=== PATIENT | male | born 1935 | race Caucasian/White ===

== ENCOUNTER 2022-02-08 08:22 | Inpatient (IN) ==
[2022-02-08] MEDS ORDERED: SODIUM CHLORIDE 0.9% 1,000 ML IV STA (09:13)
[2022-02-08 09:48] LABS: Albumin 3.7 G/DL (3.4-5.0); Bilirubin,Total 1.1 MG/DL (0.20-1.00); Calcium 8.8 MG/DL (8.5-10.1); Osmolality,Calculated 333.3 MOS/KG (273-304); Total Protein 7.2 G/DL (6.4-8.2)
[2022-02-08 09:53] LABS: Potassium 6.7 MMOL/L (3.5-5.1)
[2022-02-08 10:05] LABS: Basophils # 0.1 10*3/uL (0.0-0.2); Basophils % 0.3 % (0.0-0.8); Hematocrit 38.2 VOL% (42.0-52.0); Immature Granulocytes % 1.5 %; Immature Granulocytes Absolute 0.35 #; Lymphocytes # 1.5 10*3/uL (1.4-4.0); Lymphocytes % 6.4 % (21.2-54.2); Mean Corpuscular HGB Conc 28.5 GM/DL (32-36); Mean Corpuscular Volume 108.2 FL (87-102); Mean Platelet Volume 13.8 FL (9.6-12.0); Monocytes # 2.4 10*3/uL (0.11-0.8); Monocytes % 10.1 % (1.7-12.7); Neutrophils % 81.7 % (38.7-73.9); Platelet Count 205 T/CUMM (130-400); Red Blood Count 3.53 MC/CUMM (3.8-5.5); Red Cell Distribution Width 14.4 % (9.3-17.3); White Blood Count 23.4 T/CUMM (4-12)
[2022-02-08 10:07] LABS: Hemoglobin 10.9 GM/DL (14.0-18.0)
[2022-02-08 10:17] LABS: Band Neutrophils 6 % (0-10); Lymphocytes 5 % (20-55); Nucleated Red Blood Cells 2 (0-5); Total Cells Counted 100
[2022-02-08 10:18] LABS: Macrocytosis Slight; Ovalocytes Few; Platelet Estimate Normal; Polychromasia Slight
[2022-02-08 10:32] LABS: Arterial Base Excess iSTAT -19 MMOL/L (-2.5-2.5); Arterial Bicarbonate iSTAT 8.8 MMOL/L (20-26); Arterial O2 Saturation iSTAT 92 % (95-100); Arterial PCO2 iSTAT 26 MM HG (35-48); Arterial PO2 iSTAT 81 MM HG (80-95); Arterial Total CO2 iSTAT 10 MMO/L (23-27); Arterial pH iSTAT 7.132 (7.35-7.45)
[2022-02-08] MEDS ORDERED: LACTATED RINGERS 1,500 ML IV ONE (10:45)
[2022-02-08 11:27] LABS: Albumin 3.6 G/DL (3.4-5.0); Calcium 8.5 MG/DL (8.5-10.1); Total Protein 6.8 G/DL (6.4-8.2)
[2022-02-08 11:30] LABS: Potassium 6.8 MMOL/L (3.5-5.1)
[2022-02-08] MEDS ORDERED: ALBUTEROL 2.5 MG/3 ML NEB RESP TX STA (11:32)
[2022-02-08] MEDS ORDERED: INSULIN REGULAR 100 UNIT/ML IV ONE (11:32)
[2022-02-08] MEDS ORDERED: SODIUM BICARBONATE 50 MEQ/50 ML VIAL IV STA (11:38)
[2022-02-08] MEDS ORDERED: INSULIN REGULAR DRIP 100 ML IV PRN (11:50)
[2022-02-08] MEDS: LACTATED RINGERS 1,000 ML IV SCH ×2 (13:39→21:23)
[2022-02-08 14:44] LABS: Calcium 8.3 MG/DL (8.5-10.1); Osmolality,Calculated 332.5 MOS/KG (273-304); Potassium 5.4 MMOL/L (3.5-5.1)
[2022-02-08 14:44] LABS: Glucose,Urine (UA) >1000 mg/dL (Negative); Hyaline Casts,Urine 3 /LPF (0-3); Mucus,Urine Occasional /LPF (Occasional); Protein,Urine 100 mg/dL (Negative); RBC,Urine 2 /HPF (0-4); Squamous Epithelial Cell,Urine Occasional /HPF (0-10); Urine Appearance Clear (Clear); Urine Color Yellow (Yellow)
[2022-02-08 14:45] LABS: Bilirubin,Urine Small mg/dL (Negative); Blood, Urine Large mg/dL (Negative); Ketones,Urine 15 mg/dL (Negative); Nitrite,Urine Negative (Negative); Urine Urobilinogen 0.2 eU/dL (<2.0)
[2022-02-08] MEDS: PANTOPRAZOLE 40 MG VIAL IV SCH (14:47)
[2022-02-08] MEDS: cloNIDine 0.3 MG/24 HR PATCH TRANSDERM SCH (14:48)
[2022-02-08] MEDS: cefTRIAXone 1,000 MG in SODIUM CHLORIDE 0.9% 100 ML IV SCH (14:48)
[2022-02-08] MEDS ORDERED: LACTATED RINGERS 1,000 ML IV ONE (14:59)
[2022-02-08 16:49] LABS: Calcium 8.2 MG/DL (8.5-10.1); Osmolality,Calculated 331.1 MOS/KG (273-304); Potassium 5.2 MMOL/L (3.5-5.1)
[2022-02-08 19:54] LABS: Calcium 8.3 MG/DL (8.5-10.1); Osmolality,Calculated 326.1 MOS/KG (273-304); Potassium 5.4 MMOL/L (3.5-5.1)
[2022-02-08] MEDS ORDERED: ENOXAPARIN 30 MG/0.3 ML SYRINGE SUBCUT SCH (21:00)
[2022-02-08 22:20] LABS: Calcium 8.7 MG/DL (8.5-10.1); Osmolality,Calculated 320.8 MOS/KG (273-304); Potassium 5.3 MMOL/L (3.5-5.1)
[2022-02-08] MEDS ORDERED: METOPROLOL TARTRATE 5 MG/5 ML VIAL IV ONE (23:45)
[2022-02-09 01:56] LABS: ABG Base Excess -4.7 MMOL/L (-2.5-2.5); ABG HCO3 20.4 MMOL/L (20-26); ABG Oxygen Saturation 95.5 % (95-100); ABG PCO2 43.1 MM HG (35-48); ABG PH 7.305 (7.35-7.45); ABG PO2 84.3 MM HG (80-95); ABG TCO2 19.6 MMOL/L (23-27)
[2022-02-09 04:02] LABS: Basophils % 0.1 % (0.0-0.8); Hemoglobin 10.1 GM/DL (14.0-18.0); Immature Granulocytes % 0.9 %; Immature Granulocytes Absolute 0.13 #; Lymphocytes # 0.7 10*3/uL (1.4-4.0); Lymphocytes % 4.6 % (21.2-54.2); Mean Corpuscular HGB Conc 33.7 GM/DL (32-36); Mean Corpuscular Volume 92.9 FL (87-102); Mean Platelet Volume 12.2 FL (9.6-12.0); Monocytes # 1.3 10*3/uL (0.11-0.8); Monocytes % 8.6 % (1.7-12.7); Neutrophils % 85.8 % (38.7-73.9); Platelet Count 141 T/CUMM (130-400); Red Blood Count 3.23 MC/CUMM (3.8-5.5); Red Cell Distribution Width 13.6 % (9.3-17.3); White Blood Count 14.7 T/CUMM (4-12)
[2022-02-09 04:20] LABS: PT Patient Result 68.6 SECS (10.1-12.1)
[2022-02-09 04:21] LABS: Band Neutrophils 2 % (0-10); Eosinophils 1 % (0-10); Lymphocytes 3 % (20-55); Platelet Estimate Adequate; Total Cells Counted 100
[2022-02-09 04:23] LABS: Calcium 8.6 MG/DL (8.5-10.1); Osmolality,Calculated 318.1 MOS/KG (273-304); Potassium 4.7 MMOL/L (3.5-5.1)
[2022-02-09 04:24] LABS: INR 7.2
[2022-02-09] MEDS: LACTATED RINGERS 1,000 ML IV SCH ×2 (04:31→12:44)
[2022-02-09] MEDS ORDERED: METOPROLOL TARTRATE 5 MG/5 ML VIAL IV ONE (05:37)
[2022-02-09] MEDS ORDERED: INSULIN REGULAR 100 UNIT/ML IV ONE ×2 (08:59→13:45)
[2022-02-09] MEDS: PANTOPRAZOLE 40 MG VIAL IV SCH (09:03)
[2022-02-09] MEDS: METOPROLOL TARTRATE 5 MG/5 ML VIAL IV SCH ×5 (09:28→23:34)
[2022-02-09] MEDS: INSULIN REGULAR 100 UNIT/ML IV PRN ×2 (12:01→14:49)
[2022-02-09 13:40] LABS: Calcium 8.7 MG/DL (8.5-10.1); Osmolality,Calculated 312.2 MOS/KG (273-304); Potassium 4.1 MMOL/L (3.5-5.1)
[2022-02-09 14:32] LABS: Arterial Base Excess iSTAT -2 MMOL/L (-2.5-2.5); Arterial O2 Saturation iSTAT 99 % (95-100); Arterial PCO2 iSTAT 46 MM HG (35-48); Arterial PO2 iSTAT 141 MM HG (80-95); Arterial Total CO2 iSTAT 25 MMO/L (23-27); Arterial pH iSTAT 7.326 (7.35-7.45)
[2022-02-09] MEDS: cefTRIAXone 1,000 MG in SODIUM CHLORIDE 0.9% 100 ML IV SCH (16:30)
[2022-02-09 18:08] LABS: PT Patient Result 70.7 SECS (10.1-12.1)
[2022-02-09 18:15] LABS: Albumin 3.1 G/DL (3.4-5.0); Bilirubin,Total 0.7 MG/DL (0.20-1.00); Calcium 8.7 MG/DL (8.5-10.1); Osmolality,Calculated 304.1 MOS/KG (273-304); Phosphorous 3.4 MG/DL (2.5-4.9); Potassium 3.9 MMOL/L (3.5-5.1); Thyroid Stimulating Hormone 0.322 uIU/ml (0.358-3.74); Total Protein 5.6 G/DL (6.4-8.2)
[2022-02-09 18:16] LABS: INR 7.4
[2022-02-09] MEDS ORDERED: PHYTONADIONE 10 MG/1 ML AMP SUBCUT ONE (19:48)
[2022-02-10 04:41] LABS: Basophils % 0.1 % (0.0-0.8); Eosinophils # 0.1 10*3/uL (0.0-0.87); Eosinophils % 0.5 % (0.00-10.9); Hematocrit 30.2 VOL% (42.0-52.0); Hemoglobin 10.1 GM/DL (14.0-18.0); Immature Granulocytes % 0.6 %; Immature Granulocytes Absolute 0.07 #; Lymphocytes # 1.3 10*3/uL (1.4-4.0); Lymphocytes % 10.4 % (21.2-54.2); Mean Corpuscular HGB Conc 33.4 GM/DL (32-36); Mean Corpuscular Volume 92.1 FL (87-102); Mean Platelet Volume 13.4 FL (9.6-12.0); Monocytes # 0.9 10*3/uL (0.11-0.8); Monocytes % 7.4 % (1.7-12.7); Red Blood Count 3.28 MC/CUMM (3.8-5.5); Red Cell Distribution Width 13.9 % (9.3-17.3); White Blood Count 12.5 T/CUMM (4-12)
[2022-02-10 04:44] LABS: Platelet Count 107 T/CUMM (130-400)
[2022-02-10 04:58] LABS: PT Patient Result 67.6 SECS (10.1-12.1)
[2022-02-10] MEDS: METOPROLOL TARTRATE 5 MG/5 ML VIAL IV SCH ×3 (05:28→19:00)
[2022-02-10 06:58] LABS: Potassium 3.6 MMOL/L (3.5-5.1)
[2022-02-10 07:01] LABS: Calcium 8.7 MG/DL (8.5-10.1)
[2022-02-10 07:02] LABS: Osmolality,Calculated 298.3 MOS/KG (273-304)
[2022-02-10 07:05] LABS: Phosphorous 2.2 MG/DL (2.5-4.9)
[2022-02-10 07:06] LABS: Total Protein 5.4 G/DL (6.4-8.2)
[2022-02-10 07:07] LABS: Bilirubin,Total 0.9 MG/DL (0.20-1.00)
[2022-02-10] MEDS: INSULIN REGULAR 100 UNIT/ML SUBCUT SCH ×4 (09:00→20:52)
[2022-02-10] MEDS: PANTOPRAZOLE 40 MG VIAL IV SCH (09:00)
[2022-02-10] MEDS ORDERED: ZINC OXIDE PASTE 113 GM TUBE TOP PRN (15:49)
[2022-02-10] MEDS: cefTRIAXone 1,000 MG in SODIUM CHLORIDE 0.9% 100 ML IV SCH (17:18)
[2022-02-11] MEDS: INSULIN REGULAR 100 UNIT/ML SUBCUT SCH ×6 (00:11→20:30)
[2022-02-11] MEDS: METOPROLOL TARTRATE 5 MG/5 ML VIAL IV SCH ×4 (00:12→17:27)
[2022-02-11 04:56] LABS: Basophils % 0.2 % (0.0-0.8); Eosinophils # 0.1 10*3/uL (0.0-0.87); Eosinophils % 1.3 % (0.00-10.9); Hematocrit 31.3 VOL% (42.0-52.0); Hemoglobin 10.2 GM/DL (14.0-18.0); Immature Granulocytes % 0.8 %; Immature Granulocytes Absolute 0.07 #; Lymphocytes % 11.4 % (21.2-54.2); Mean Corpuscular HGB Conc 32.6 GM/DL (32-36); Mean Corpuscular Volume 94.8 FL (87-102); Mean Platelet Volume 12.6 FL (9.6-12.0); Monocytes # 0.8 10*3/uL (0.11-0.8); Monocytes % 8.8 % (1.7-12.7); Neutrophils % 77.5 % (38.7-73.9); Platelet Count 124 T/CUMM (130-400); Red Cell Distribution Width 14.2 % (9.3-17.3)
[2022-02-11 05:12] LABS: Calcium 8.9 MG/DL (8.5-10.1); Potassium 4.4 MMOL/L (3.5-5.1)
[2022-02-11] MEDS: PANTOPRAZOLE 40 MG VIAL IV SCH (09:23)
[2022-02-11] MEDS: cefTRIAXone 1,000 MG in SODIUM CHLORIDE 0.9% 100 ML IV SCH (14:58)
[2022-02-12] MEDS: METOPROLOL TARTRATE 5 MG/5 ML VIAL IV SCH ×2 (00:20→05:15)
[2022-02-12] MEDS: INSULIN REGULAR 100 UNIT/ML SUBCUT SCH ×7 (00:20→23:36)
[2022-02-12 06:16] LABS: Basophils % 0.2 % (0.0-0.8); Eosinophils # 0.2 10*3/uL (0.0-0.87); Eosinophils % 1.8 % (0.00-10.9); Hematocrit 32.1 VOL% (42.0-52.0); Hemoglobin 10.4 GM/DL (14.0-18.0); Immature Granulocytes % 0.7 %; Immature Granulocytes Absolute 0.08 #; Lymphocytes # 0.8 10*3/uL (1.4-4.0); Mean Corpuscular HGB Conc 32.4 GM/DL (32-36); Mean Corpuscular Volume 96.7 FL (87-102); Mean Platelet Volume 12.4 FL (9.6-12.0); Monocytes # 0.8 10*3/uL (0.11-0.8); Monocytes % 7.1 % (1.7-12.7); Neutrophils % 83.2 % (38.7-73.9); Platelet Count 114 T/CUMM (130-400); Red Blood Count 3.32 MC/CUMM (3.8-5.5); Red Cell Distribution Width 14.2 % (9.3-17.3); White Blood Count 11.5 T/CUMM (4-12)
[2022-02-12 06:18] LABS: INR 1.6; PT Patient Result 17.5 SECS (10.1-12.1)
[2022-02-12 06:32] LABS: Calcium 8.8 MG/DL (8.5-10.1); Osmolality,Calculated 289.3 MOS/KG (273-304); Potassium 3.4 MMOL/L (3.5-5.1)
[2022-02-12] MEDS ORDERED: METOPROLOL TARTRATE 5 MG/5 ML VIAL IV ONE (08:49)
[2022-02-12] MEDS: METOPROLOL TARTRATE 25 MG TABLET PO SCH ×2 (09:04→20:39)
[2022-02-12] MEDS: PANTOPRAZOLE 40 MG VIAL IV SCH (09:06)
[2022-02-12] MEDS ORDERED: POTASSIUM CHLORIDE 20 MEQ TABLET PO ONE (13:19)
[2022-02-12] MEDS: ALUMINUM/MAGNES/SIMETH MAX STR 30 ML UDCUP PO PRN (14:52)
[2022-02-12] MEDS: cefTRIAXone 1,000 MG in SODIUM CHLORIDE 0.9% 100 ML IV SCH (14:56)
[2022-02-12] MEDS: POTASSIUM CHLORIDE 10 MEQ TABLET PO SCH (14:56)
[2022-02-12] MEDS: WARFARIN 5 MG TABLET PO SCH (17:35)
[2022-02-13] MEDS: INSULIN REGULAR 100 UNIT/ML SUBCUT SCH ×6 (04:08→23:03)
[2022-02-13 05:47] LABS: Basophils # 0.1 10*3/uL (0.0-0.2); Basophils % 0.4 % (0.0-0.8); Eosinophils # 0.6 10*3/uL (0.0-0.87); Eosinophils % 3.9 % (0.00-10.9); Hematocrit 34.6 VOL% (42.0-52.0); Immature Granulocytes % 1.8 %; Immature Granulocytes Absolute 0.26 #; Lymphocytes % 6.7 % (21.2-54.2); Mean Corpuscular HGB Conc 31.8 GM/DL (32-36); Mean Corpuscular Volume 96.4 FL (87-102); Mean Platelet Volume 11.9 FL (9.6-12.0); Monocytes # 1.2 10*3/uL (0.11-0.8); Monocytes % 8.3 % (1.7-12.7); Neutrophils % 78.9 % (38.7-73.9); Platelet Count 122 T/CUMM (130-400); Red Blood Count 3.59 MC/CUMM (3.8-5.5); Red Cell Distribution Width 14.1 % (9.3-17.3); White Blood Count 14.3 T/CUMM (4-12)
[2022-02-13 05:49] LABS: INR 1.3; PT Patient Result 13.8 SECS (10.1-12.1)
[2022-02-13 05:58] LABS: Albumin 2.6 G/DL (3.4-5.0); Bilirubin,Total 1.4 MG/DL (0.20-1.00); Calcium 8.5 MG/DL (8.5-10.1); Osmolality,Calculated 281.8 MOS/KG (273-304); Potassium 3.4 MMOL/L (3.5-5.1); Total Protein 5.6 G/DL (6.4-8.2)
[2022-02-13] MEDS: METOPROLOL TARTRATE 25 MG TABLET PO SCH ×2 (08:18→20:59)
[2022-02-13] MEDS: POTASSIUM CHLORIDE 10 MEQ TABLET PO SCH (08:18)
[2022-02-13] MEDS: PANTOPRAZOLE 40 MG TABLET PO SCH (08:18)
[2022-02-13] MEDS: cefTRIAXone 1,000 MG in SODIUM CHLORIDE 0.9% 100 ML IV SCH (14:18)
[2022-02-13] MEDS: ALUMINUM/MAGNES/SIMETH MAX STR 30 ML UDCUP PO PRN ×2 (14:23→18:08)
[2022-02-13] MEDS: WARFARIN 5 MG TABLET PO SCH (17:54)
[2022-02-13] MEDS ORDERED: WARFARIN 2.5 MG TABLET PO ONE (18:00)
[2022-02-13] MEDS: DOCUSATE SODIUM 100 MG CAPSULE PO SCH (20:59)
[2022-02-13] MEDS: INSULIN GLARGINE 100 UNIT/ML SUBCUT SCH (20:59)
[2022-02-14] MEDS: INSULIN REGULAR 100 UNIT/ML SUBCUT SCH ×6 (04:18→23:45)
[2022-02-14 06:00] LABS: Basophils # 0.1 10*3/uL (0.0-0.2); Basophils % 0.7 % (0.0-0.8); Eosinophils # 0.8 10*3/uL (0.0-0.87); Eosinophils % 5.2 % (0.00-10.9); Hematocrit 33.8 VOL% (42.0-52.0); Hemoglobin 10.9 GM/DL (14.0-18.0); Immature Granulocytes % 4.5 %; Immature Granulocytes Absolute 0.66 #; Lymphocytes # 1.1 10*3/uL (1.4-4.0); Lymphocytes % 7.2 % (21.2-54.2); Mean Corpuscular HGB Conc 32.2 GM/DL (32-36); Mean Corpuscular Volume 94.7 FL (87-102); Mean Platelet Volume 12.2 FL (9.6-12.0); Monocytes # 1.6 10*3/uL (0.11-0.8); Monocytes % 10.7 % (1.7-12.7); Neutrophils % 71.7 % (38.7-73.9); Platelet Count 148 T/CUMM (130-400); Red Blood Count 3.57 MC/CUMM (3.8-5.5); White Blood Count 14.8 T/CUMM (4-12)
[2022-02-14 06:22] LABS: INR 1.3; PT Patient Result 14.2 SECS (10.1-12.1)
[2022-02-14 06:24] LABS: Albumin 2.3 G/DL (3.4-5.0); Bilirubin,Total 1.2 MG/DL (0.20-1.00); Calcium 8.1 MG/DL (8.5-10.1); Osmolality,Calculated 278.7 MOS/KG (273-304); Potassium 3.2 MMOL/L (3.5-5.1); Total Protein 5.6 G/DL (6.4-8.2)
[2022-02-14] MEDS: PANTOPRAZOLE 40 MG TABLET PO SCH (08:00)
[2022-02-14] MEDS: POTASSIUM CHLORIDE 10 MEQ TABLET PO SCH (08:01)
[2022-02-14] MEDS: METOPROLOL TARTRATE 25 MG TABLET PO SCH (08:01)
[2022-02-14] MEDS: POTASSIUM CHLORIDE 20 MEQ TABLET PO SCH (08:02)
[2022-02-14] MEDS ORDERED: METOPROLOL TARTRATE 25 MG TABLET PO ONE (09:24)
[2022-02-14 09:27] LABS: Eosinophils 3 % (0-10); Lymphocytes 2 % (20-55); Myelocytes 1 %; Platelet Estimate Adequate; Total Cells Counted 100
[2022-02-14] MEDS ORDERED: GLUCAGON 1 MG VIAL IM PRN (12:31)
[2022-02-14] MEDS: ONDANSETRON 4 MG/2 ML VIAL IV PRN (12:32)
[2022-02-14] MEDS ORDERED: DEXTROSE 50% 25 GM/50 ML SYRINGE IV PRN (12:32)
[2022-02-14] MEDS: cefTRIAXone 1,000 MG in SODIUM CHLORIDE 0.9% 100 ML IV SCH (15:38)
[2022-02-14] MEDS: guaiFENesin 200 MG/10 ML UDCUP PO PRN (17:42)
[2022-02-14] MEDS: WARFARIN 5 MG TABLET PO SCH (17:42)
[2022-02-14] MEDS: DOCUSATE SODIUM 100 MG CAPSULE PO SCH (20:53)
[2022-02-14] MEDS: METOPROLOL TARTRATE 50 MG TABLET PO SCH (20:53)
[2022-02-14] MEDS: INSULIN GLARGINE 100 UNIT/ML SUBCUT SCH (20:53)
[2022-02-14] MEDS: MELATONIN 3 MG TABLET PO PRN (20:54)
[2022-02-15] MEDS: INSULIN REGULAR 100 UNIT/ML SUBCUT SCH ×6 (04:00→23:27)
[2022-02-15 05:52] LABS: Basophils # 0.1 10*3/uL (0.0-0.2); Basophils % 0.9 % (0.0-0.8); Eosinophils # 0.5 10*3/uL (0.0-0.87); Eosinophils % 5.2 % (0.00-10.9); Hematocrit 33.8 VOL% (42.0-52.0); Hemoglobin 10.8 GM/DL (14.0-18.0); Immature Granulocytes % 7.2 %; Immature Granulocytes Absolute 0.75 #; Lymphocytes # 0.9 10*3/uL (1.4-4.0); Lymphocytes % 8.4 % (21.2-54.2); Mean Corpuscular Volume 95.8 FL (87-102); Monocytes # 1.5 10*3/uL (0.11-0.8); Monocytes % 13.9 % (1.7-12.7); Neutrophils % 64.4 % (38.7-73.9); Platelet Count 159 T/CUMM (130-400); Red Blood Count 3.53 MC/CUMM (3.8-5.5); Red Cell Distribution Width 14.1 % (9.3-17.3); White Blood Count 10.4 T/CUMM (4-12)
[2022-02-15 06:08] LABS: Calcium 7.8 MG/DL (8.5-10.1); Potassium 3.7 MMOL/L (3.5-5.1)
[2022-02-15 06:11] LABS: INR 1.4; PT Patient Result 14.8 SECS (10.1-12.1)
[2022-02-15 07:17] LABS: Eosinophils 3 % (0-10); Lymphocytes 5 % (20-55); Ovalocytes Few; Platelet Estimate Adequate; Schistocytes Slight; Total Cells Counted 100
[2022-02-15] MEDS: POTASSIUM CHLORIDE 20 MEQ TABLET PO SCH (08:38)
[2022-02-15] MEDS: PANTOPRAZOLE 40 MG TABLET PO SCH (08:39)
[2022-02-15] MEDS: METOPROLOL TARTRATE 50 MG TABLET PO SCH ×2 (08:39→20:23)
[2022-02-15] MEDS: guaiFENesin 200 MG/10 ML UDCUP PO PRN ×2 (09:19→20:26)
[2022-02-15] MEDS: cloNIDine 0.3 MG/24 HR PATCH TRANSDERM SCH (11:45)
[2022-02-15] MEDS: ALBUTEROL/IPRATROPIUM 3 ML NEB RESP TX SCH ×4 (12:05→23:45)
[2022-02-15] MEDS: cefTRIAXone 1,000 MG in SODIUM CHLORIDE 0.9% 100 ML IV SCH (16:00)
[2022-02-15] MEDS: ACETAMINOPHEN 325 MG TABLET PO PRN ×2 (16:02→21:39)
[2022-02-15] MEDS: WARFARIN 5 MG TABLET PO SCH (17:34)
[2022-02-15] MEDS: DOCUSATE SODIUM 100 MG CAPSULE PO SCH (19:59)
[2022-02-15] MEDS: INSULIN GLARGINE 100 UNIT/ML SUBCUT SCH (20:23)
[2022-02-15] MEDS: MELATONIN 3 MG TABLET PO PRN (20:23)
[2022-02-15] MEDS: ONDANSETRON 4 MG/2 ML VIAL IV PRN (20:26)
[2022-02-15] MEDS: ALUMINUM/MAGNES/SIMETH MAX STR 30 ML UDCUP PO PRN (23:16)
[2022-02-16] MEDS: ALBUTEROL/IPRATROPIUM 3 ML NEB RESP TX SCH ×6 (03:22→23:08)
[2022-02-16] MEDS: INSULIN REGULAR 100 UNIT/ML SUBCUT SCH ×6 (04:14→23:45)
[2022-02-16 05:24] LABS: Basophils # 0.1 10*3/uL (0.0-0.2); Basophils % 0.6 % (0.0-0.8); Eosinophils # 0.2 10*3/uL (0.0-0.87); Eosinophils % 2.3 % (0.00-10.9); Hematocrit 33.3 VOL% (42.0-52.0); Hemoglobin 10.7 GM/DL (14.0-18.0); Immature Granulocytes Absolute 0.35 #; Lymphocytes # 0.8 10*3/uL (1.4-4.0); Lymphocytes % 8.7 % (21.2-54.2); Mean Corpuscular HGB Conc 32.1 GM/DL (32-36); Mean Corpuscular Volume 96.2 FL (87-102); Mean Platelet Volume 11.6 FL (9.6-12.0); Monocytes # 1.3 10*3/uL (0.11-0.8); Monocytes % 15.3 % (1.7-12.7); Neutrophils % 69.1 % (38.7-73.9); Platelet Count 168 T/CUMM (130-400); Red Blood Count 3.46 MC/CUMM (3.8-5.5); Red Cell Distribution Width 14.3 % (9.3-17.3); White Blood Count 8.7 T/CUMM (4-12)
[2022-02-16 05:35] LABS: Calcium 8.3 MG/DL (8.5-10.1); Potassium 3.6 MMOL/L (3.5-5.1)
[2022-02-16] MEDS: ALUMINUM/MAGNES/SIMETH MAX STR 30 ML UDCUP PO PRN (05:46)
[2022-02-16] MEDS: PANTOPRAZOLE 40 MG TABLET PO SCH (08:26)
[2022-02-16] MEDS: POTASSIUM CHLORIDE 20 MEQ TABLET PO SCH (08:26)
[2022-02-16] MEDS: METOPROLOL TARTRATE 50 MG TABLET PO SCH (08:26)
[2022-02-16 08:45] LABS: Albumin 2.4 G/DL (3.4-5.0); Bilirubin,Total 0.8 MG/DL (0.20-1.00); Calcium 8.3 MG/DL (8.5-10.1); Osmolality,Calculated 276.2 MOS/KG (273-304); Total Protein 5.7 G/DL (6.4-8.2)
[2022-02-16] MEDS: DILTIAZEM 30 MG TABLET PO SCH ×2 (09:07→12:41)
[2022-02-16] MEDS: WARFARIN 5 MG TABLET PO SCH (17:21)
[2022-02-16] MEDS: VANCOMYCIN 50 MG/ML 60 ML/BOTTLE PO SCH ×2 (18:26→23:46)
[2022-02-16] MEDS ORDERED: METOPROLOL TARTRATE 5 MG/5 ML VIAL IV ONE (20:36)
[2022-02-16] MEDS: METOPROLOL TARTRATE 5 MG/5 ML VIAL IV SCH (20:39)
[2022-02-16] MEDS: INSULIN GLARGINE 100 UNIT/ML SUBCUT SCH (20:55)
[2022-02-16] MEDS: ONDANSETRON 4 MG/2 ML VIAL IV PRN (23:43)
[2022-02-17] MEDS: ALBUTEROL/IPRATROPIUM 3 ML NEB RESP TX SCH ×6 (03:13→22:35)
[2022-02-17] MEDS: METOPROLOL TARTRATE 5 MG/5 ML VIAL IV SCH ×4 (03:38→16:29)
[2022-02-17] MEDS: INSULIN REGULAR 100 UNIT/ML SUBCUT SCH ×6 (03:49→23:43)
[2022-02-17 05:44] LABS: Basophils # 0.1 10*3/uL (0.0-0.2); Basophils % 0.6 % (0.0-0.8); Eosinophils # 0.2 10*3/uL (0.0-0.87); Eosinophils % 1.6 % (0.00-10.9); Hematocrit 34.1 VOL% (42.0-52.0); Immature Granulocytes % 2.1 %; Immature Granulocytes Absolute 0.24 #; Lymphocytes # 0.9 10*3/uL (1.4-4.0); Mean Corpuscular HGB Conc 32.3 GM/DL (32-36); Mean Corpuscular Volume 94.7 FL (87-102); Mean Platelet Volume 11.4 FL (9.6-12.0); Monocytes # 1.6 10*3/uL (0.11-0.8); Monocytes % 13.8 % (1.7-12.7); Neutrophils % 73.9 % (38.7-73.9); Platelet Count 192 T/CUMM (130-400); Red Cell Distribution Width 14.4 % (9.3-17.3); White Blood Count 11.5 T/CUMM (4-12)
[2022-02-17] MEDS: VANCOMYCIN 50 MG/ML 60 ML/BOTTLE PO SCH ×4 (06:03→23:43)
[2022-02-17 06:11] LABS: Albumin 2.3 G/DL (3.4-5.0); Bilirubin,Total 0.7 MG/DL (0.20-1.00); Calcium 8.4 MG/DL (8.5-10.1); Potassium 3.5 MMOL/L (3.5-5.1); Total Protein 5.6 G/DL (6.4-8.2)
[2022-02-17] MEDS: DILTIAZEM INJ 100 MG in SODIUM CHLORIDE 0.9% 100 ML IV PRN ×2 (07:40→20:20)
[2022-02-17] MEDS: POTASSIUM CHLORIDE RIDER 10 MEQ/100 ML PREMIX IV PRN ×3 (08:10→10:12)
[2022-02-17] MEDS: POTASSIUM CHLORIDE 20 MEQ TABLET PO SCH (08:15)
[2022-02-17] MEDS: PANTOPRAZOLE 40 MG TABLET PO SCH (08:15)
[2022-02-17] MEDS: LACTATED RINGERS 1,000 ML IV SCH ×2 (08:40→21:53)
[2022-02-17] MEDS: FLUCONAZOLE 100 MG TABLET PO SCH (09:32)
[2022-02-17] MEDS: PANTOPRAZOLE 40 MG VIAL IV SCH (09:32)
[2022-02-17] MEDS: WARFARIN 5 MG TABLET PO SCH (18:40)
[2022-02-17] MEDS ORDERED: METOPROLOL TARTRATE 5 MG/5 ML VIAL IV PRN (18:49)
[2022-02-17] MEDS ORDERED: METOPROLOL TARTRATE 5 MG/5 ML VIAL IV SCH (20:30)
[2022-02-17] MEDS: DILTIAZEM 30 MG TABLET PO SCH (21:13)
[2022-02-17] MEDS: INSULIN GLARGINE 100 UNIT/ML SUBCUT SCH (21:14)
[2022-02-17] MEDS: METOPROLOL TARTRATE 50 MG TABLET PO SCH (21:16)
[2022-02-17] MEDS: MELATONIN 3 MG TABLET PO PRN (22:43)
[2022-02-18] MEDS: ALBUTEROL/IPRATROPIUM 3 ML NEB RESP TX SCH ×5 (03:55→19:59)
[2022-02-18 04:37] LABS: Basophils # 0.1 10*3/uL (0.0-0.2); Basophils % 0.5 % (0.0-0.8); Eosinophils # 0.2 10*3/uL (0.0-0.87); Eosinophils % 1.5 % (0.00-10.9); Hematocrit 32.7 VOL% (42.0-52.0); Hemoglobin 10.4 GM/DL (14.0-18.0); Immature Granulocytes % 1.5 %; Immature Granulocytes Absolute 0.23 #; Lymphocytes # 0.9 10*3/uL (1.4-4.0); Lymphocytes % 5.7 % (21.2-54.2); Mean Corpuscular HGB Conc 31.8 GM/DL (32-36); Mean Corpuscular Volume 95.9 FL (87-102); Mean Platelet Volume 12.3 FL (9.6-12.0); Monocytes # 1.6 10*3/uL (0.11-0.8); Monocytes % 10.4 % (1.7-12.7); Neutrophils % 80.4 % (38.7-73.9); Platelet Count 210 T/CUMM (130-400); Red Blood Count 3.41 MC/CUMM (3.8-5.5); Red Cell Distribution Width 14.5 % (9.3-17.3); White Blood Count 15.7 T/CUMM (4-12)
[2022-02-18 04:50] LABS: INR 2.2; PT Patient Result 22.8 SECS (10.1-12.1)
[2022-02-18 05:04] LABS: Albumin 2.1 G/DL (3.4-5.0); Bilirubin,Total 0.8 MG/DL (0.20-1.00); Calcium 8.2 MG/DL (8.5-10.1); Potassium 3.6 MMOL/L (3.5-5.1); Total Protein 5.4 G/DL (6.4-8.2)
[2022-02-18] MEDS: INSULIN REGULAR 100 UNIT/ML SUBCUT SCH ×5 (05:10→20:04)
[2022-02-18] MEDS: DILTIAZEM INJ 100 MG in SODIUM CHLORIDE 0.9% 100 ML IV PRN (06:55)
[2022-02-18] MEDS: VANCOMYCIN 50 MG/ML 60 ML/BOTTLE PO SCH ×4 (06:55→23:42)
[2022-02-18] MEDS: POTASSIUM CHLORIDE 20 MEQ TABLET PO PRN (07:13)
[2022-02-18] MEDS ORDERED: MAGNESIUM SULF RIDER 2 GM/50 ML PREMIX IV ONE (07:19)
[2022-02-18] MEDS: METOPROLOL TARTRATE 50 MG TABLET PO SCH ×2 (08:46→20:04)
[2022-02-18] MEDS: FLUCONAZOLE 100 MG TABLET PO SCH (08:46)
[2022-02-18] MEDS: DILTIAZEM 30 MG TABLET PO SCH ×4 (08:46→20:04)
[2022-02-18] MEDS: PANTOPRAZOLE 40 MG VIAL IV SCH (08:46)
[2022-02-18] MEDS: POTASSIUM CHLORIDE 20 MEQ TABLET PO SCH (08:46)
[2022-02-18] MEDS: LACTATED RINGERS 1,000 ML IV SCH (13:46)
[2022-02-18] MEDS ORDERED: SODIUM CHLORIDE 0.9% 1,000 ML IV PRN ×2 (14:36→21:21)
[2022-02-18] MEDS: MELATONIN 3 MG TABLET PO PRN (20:04)
[2022-02-18] MEDS: INSULIN GLARGINE 100 UNIT/ML SUBCUT SCH (20:04)
[2022-02-18 21:14] LABS: INR 2.1; PT Patient Result 21.7 SECS (10.1-12.1)
[2022-02-19] MEDS: INSULIN REGULAR 100 UNIT/ML SUBCUT SCH ×6 (00:10→20:40)
[2022-02-19] MEDS: ALBUTEROL/IPRATROPIUM 3 ML NEB RESP TX SCH ×7 (03:30→22:00)
[2022-02-19] MEDS: LACTATED RINGERS 1,000 ML IV SCH (04:05)
[2022-02-19 04:27] LABS: Basophils # 0.1 10*3/uL (0.0-0.2); Basophils % 0.5 % (0.0-0.8); Eosinophils # 0.3 10*3/uL (0.0-0.87); Eosinophils % 2.4 % (0.00-10.9); Hematocrit 28.6 VOL% (42.0-52.0); Hemoglobin 9.3 GM/DL (14.0-18.0); Immature Granulocytes % 1.3 %; Immature Granulocytes Absolute 0.14 #; Lymphocytes # 0.8 10*3/uL (1.4-4.0); Lymphocytes % 7.4 % (21.2-54.2); Mean Corpuscular HGB Conc 32.5 GM/DL (32-36); Mean Corpuscular Volume 94.4 FL (87-102); Monocytes # 0.9 10*3/uL (0.11-0.8); Monocytes % 8.1 % (1.7-12.7); Neutrophils % 80.3 % (38.7-73.9); Platelet Count 212 T/CUMM (130-400); Red Blood Count 3.03 MC/CUMM (3.8-5.5); Red Cell Distribution Width 14.5 % (9.3-17.3); White Blood Count 10.8 T/CUMM (4-12)
[2022-02-19 04:37] LABS: INR 1.8; PT Patient Result 18.9 SECS (10.1-12.1)
[2022-02-19 04:43] LABS: Albumin 2.4 G/DL (3.4-5.0); Bilirubin,Total 1.1 MG/DL (0.20-1.00); Calcium 8.1 MG/DL (8.5-10.1); Osmolality,Calculated 279.5 MOS/KG (273-304); Potassium 2.9 MMOL/L (3.5-5.1); Total Protein 5.8 G/DL (6.4-8.2)
[2022-02-19 04:45] LABS: Eosinophils 2 % (0-10); Lymphocytes 8 % (20-55); Platelet Estimate Adequate; Total Cells Counted 100
[2022-02-19] MEDS: POTASSIUM CHLORIDE RIDER 10 MEQ/100 ML PREMIX IV PRN ×4 (05:10→11:15)
[2022-02-19] MEDS: VANCOMYCIN 50 MG/ML 60 ML/BOTTLE PO SCH ×3 (06:54→18:40)
[2022-02-19] MEDS ORDERED: LACTATED RINGERS 1,000 ML IV SCH (08:00)
[2022-02-19] MEDS: DILTIAZEM 60 MG TABLET PO SCH ×3 (09:19→20:41)
[2022-02-19] MEDS: METOPROLOL TARTRATE 50 MG TABLET PO SCH ×2 (09:22→20:42)
[2022-02-19] MEDS: PANTOPRAZOLE 40 MG VIAL IV SCH (09:48)
[2022-02-19] MEDS ORDERED: LIDOCAINE 2% 5 ML VIAL ONE (10:19)
[2022-02-19] MEDS ORDERED: propofoL 200 MG/20 ML VIAL IV ONE (10:19)
[2022-02-19] MEDS ORDERED: ETOMIDATE 20 MG/10 ML VIAL IV ONE (10:19)
[2022-02-19] MEDS ORDERED: PHENYLEPHRINE 1 MG/10 ML SYRINGE IV ONE (10:20)
[2022-02-19] MEDS: BACILLUS COAGULANS CAPLET PO SCH ×2 (16:26→20:41)
[2022-02-19] MEDS: FLUCONAZOLE 100 MG TABLET PO SCH (16:27)
[2022-02-19] MEDS: POTASSIUM CHLORIDE 20 MEQ TABLET PO SCH (16:29)
[2022-02-19] MEDS: DEXT 5% NACL 0.45% KCL 40 MEQ 40 MEQ/1,000 ML BAG IV SCH ×2 (17:30→19:00)
[2022-02-19] MEDS: INSULIN GLARGINE 100 UNIT/ML SUBCUT SCH (20:40)
[2022-02-19] MEDS: MELATONIN 3 MG TABLET PO PRN (20:41)
[2022-02-20] MEDS: INSULIN REGULAR 100 UNIT/ML SUBCUT SCH ×6 (00:31→20:43)
[2022-02-20] MEDS: VANCOMYCIN 50 MG/ML 60 ML/BOTTLE PO SCH ×4 (00:32→18:09)
[2022-02-20] MEDS: DEXT 5% NACL 0.45% KCL 40 MEQ 40 MEQ/1,000 ML BAG IV SCH ×3 (02:40→15:32)
[2022-02-20] MEDS: ALBUTEROL/IPRATROPIUM 3 ML NEB RESP TX SCH ×5 (03:34→19:13)
[2022-02-20 04:17] LABS: Basophils # 0.1 10*3/uL (0.0-0.2); Basophils % 0.9 % (0.0-0.8); Eosinophils # 0.3 10*3/uL (0.0-0.87); Eosinophils % 3.2 % (0.00-10.9); Hematocrit 31.1 VOL% (42.0-52.0); Hemoglobin 9.9 GM/DL (14.0-18.0); Immature Granulocytes % 1.5 %; Immature Granulocytes Absolute 0.14 #; Lymphocytes # 0.9 10*3/uL (1.4-4.0); Lymphocytes % 9.7 % (21.2-54.2); Mean Corpuscular HGB Conc 31.8 GM/DL (32-36); Mean Platelet Volume 11.1 FL (9.6-12.0); Monocytes # 0.9 10*3/uL (0.11-0.8); Monocytes % 9.9 % (1.7-12.7); Neutrophils % 74.8 % (38.7-73.9); Platelet Count 199 T/CUMM (130-400); Red Blood Count 3.24 MC/CUMM (3.8-5.5); Red Cell Distribution Width 14.4 % (9.3-17.3); White Blood Count 9.3 T/CUMM (4-12)
[2022-02-20 04:42] LABS: Albumin 2.1 G/DL (3.4-5.0); Bilirubin,Total 0.9 MG/DL (0.20-1.00); Calcium 7.9 MG/DL (8.5-10.1); Osmolality,Calculated 278.5 MOS/KG (273-304); Potassium 3.3 MMOL/L (3.5-5.1); Total Protein 5.4 G/DL (6.4-8.2)
[2022-02-20] MEDS: POTASSIUM CHLORIDE RIDER 10 MEQ/100 ML PREMIX IV PRN (06:00)
[2022-02-20] MEDS: POTASSIUM CHLORIDE 20 MEQ TABLET PO SCH (08:33)
[2022-02-20] MEDS: BACILLUS COAGULANS CAPLET PO SCH ×2 (08:33→20:41)
[2022-02-20] MEDS: PANTOPRAZOLE 40 MG VIAL IV SCH (08:33)
[2022-02-20] MEDS: DILTIAZEM CD 180 MG CAPSULE PO SCH ×2 (08:33→20:40)
[2022-02-20] MEDS: POTASSIUM CHLORIDE 20 MEQ TABLET PO PRN ×3 (08:34→15:32)
[2022-02-20] MEDS: METOPROLOL TARTRATE 50 MG TABLET PO SCH ×2 (08:34→20:41)
[2022-02-20] MEDS: FLUCONAZOLE 100 MG TABLET PO SCH (08:34)
[2022-02-20] MEDS ORDERED: MAGNESIUM SULF RIDER 2 GM/50 ML PREMIX IV PRN (13:08)
[2022-02-20] MEDS: WARFARIN 5 MG TABLET PO SCH (18:08)
[2022-02-20] MEDS: INSULIN GLARGINE 100 UNIT/ML SUBCUT SCH (20:43)
[2022-02-20] MEDS: MELATONIN 3 MG TABLET PO PRN (20:54)
[2022-02-21] MEDS: INSULIN REGULAR 100 UNIT/ML SUBCUT SCH ×6 (00:45→21:10)
[2022-02-21] MEDS: VANCOMYCIN 50 MG/ML 60 ML/BOTTLE PO SCH ×4 (01:08→18:37)
[2022-02-21] MEDS: DEXT 5% NACL 0.45% KCL 40 MEQ 40 MEQ/1,000 ML BAG IV SCH ×3 (03:07→22:19)
[2022-02-21 03:33] LABS: Basophils # 0.1 10*3/uL (0.0-0.2); Basophils % 0.9 % (0.0-0.8); Eosinophils # 0.4 10*3/uL (0.0-0.87); Eosinophils % 3.4 % (0.00-10.9); Hematocrit 30.1 VOL% (42.0-52.0); Hemoglobin 9.7 GM/DL (14.0-18.0); Immature Granulocytes % 2.1 %; Immature Granulocytes Absolute 0.22 #; Lymphocytes # 1.3 10*3/uL (1.4-4.0); Lymphocytes % 11.9 % (21.2-54.2); Mean Corpuscular HGB Conc 32.2 GM/DL (32-36); Mean Corpuscular Volume 94.7 FL (87-102); Mean Platelet Volume 11.3 FL (9.6-12.0); Monocytes % 9.1 % (1.7-12.7); Neutrophils % 72.6 % (38.7-73.9); Platelet Count 226 T/CUMM (130-400); Red Blood Count 3.18 MC/CUMM (3.8-5.5); Red Cell Distribution Width 14.5 % (9.3-17.3); White Blood Count 10.5 T/CUMM (4-12)
[2022-02-21 03:43] LABS: INR 2.2; PT Patient Result 22.9 SECS (10.1-12.1)
[2022-02-21] MEDS: ALBUTEROL/IPRATROPIUM 3 ML NEB RESP TX SCH ×7 (03:50→22:00)
[2022-02-21 04:03] LABS: Albumin 2.1 G/DL (3.4-5.0); Bilirubin,Total 0.7 MG/DL (0.20-1.00); Osmolality,Calculated 275.5 MOS/KG (273-304); Potassium 3.8 MMOL/L (3.5-5.1); Total Protein 5.4 G/DL (6.4-8.2)
[2022-02-21 06:39] LABS: Osmolality,Calculated 275.5 MOS/KG (273-304); Potassium 3.8 MMOL/L (3.5-5.1)
[2022-02-21] MEDS ORDERED: METOPROLOL TARTRATE 5 MG/5 ML VIAL IV ONE (09:07)
[2022-02-21] MEDS ORDERED: SIMETHICONE CHEW 80 MG TABLET PO PRN (09:07)
[2022-02-21] MEDS: POTASSIUM CHLORIDE 20 MEQ TABLET PO SCH (09:08)
[2022-02-21] MEDS: FLUCONAZOLE 100 MG TABLET PO SCH (09:08)
[2022-02-21] MEDS: DILTIAZEM CD 180 MG CAPSULE PO SCH ×2 (09:08→21:06)
[2022-02-21] MEDS: BACILLUS COAGULANS CAPLET PO SCH ×2 (09:08→21:07)
[2022-02-21] MEDS: POTASSIUM CHLORIDE 20 MEQ TABLET PO PRN (09:09)
[2022-02-21] MEDS: METOPROLOL TARTRATE 50 MG TABLET PO SCH ×2 (09:09→21:05)
[2022-02-21] MEDS: PANTOPRAZOLE 40 MG VIAL IV SCH (09:09)
[2022-02-21] MEDS: ONDANSETRON 4 MG/2 ML VIAL IV PRN (09:15)
[2022-02-21] MEDS: SIMETHICONE CHEW 125 MG TABLET PO PRN ×2 (13:26→18:50)
[2022-02-21] MEDS: WARFARIN 5 MG TABLET PO SCH (18:36)
[2022-02-21] MEDS: MELATONIN 3 MG TABLET PO PRN (21:05)
[2022-02-21] MEDS: INSULIN GLARGINE 100 UNIT/ML SUBCUT SCH (21:09)
[2022-02-22] MEDS: INSULIN REGULAR 100 UNIT/ML SUBCUT SCH ×7 (00:35→23:38)
[2022-02-22] MEDS: VANCOMYCIN 50 MG/ML 60 ML/BOTTLE PO SCH ×5 (00:35→23:50)
[2022-02-22] MEDS: ALBUTEROL/IPRATROPIUM 3 ML NEB RESP TX SCH ×6 (02:00→22:20)
[2022-02-22 04:02] LABS: Basophils # 0.1 10*3/uL (0.0-0.2); Basophils % 1.3 % (0.0-0.8); Eosinophils # 0.3 10*3/uL (0.0-0.87); Eosinophils % 4.3 % (0.00-10.9); Hematocrit 28.5 VOL% (42.0-52.0); Hemoglobin 9.1 GM/DL (14.0-18.0); Immature Granulocytes % 3.5 %; Immature Granulocytes Absolute 0.28 #; Lymphocytes # 0.9 10*3/uL (1.4-4.0); Lymphocytes % 10.7 % (21.2-54.2); Mean Corpuscular HGB Conc 31.9 GM/DL (32-36); Mean Corpuscular Volume 96.9 FL (87-102); Mean Platelet Volume 11.7 FL (9.6-12.0); Monocytes # 0.7 10*3/uL (0.11-0.8); Monocytes % 9.3 % (1.7-12.7); Neutrophils % 70.9 % (38.7-73.9); Platelet Count 211 T/CUMM (130-400); Red Blood Count 2.94 MC/CUMM (3.8-5.5); Red Cell Distribution Width 14.6 % (9.3-17.3)
[2022-02-22 04:12] LABS: INR 2.9; PT Patient Result 29.3 SECS (10.1-12.1)
[2022-02-22 04:28] LABS: Albumin 2.3 G/DL (3.4-5.0); Bilirubin,Total 0.5 MG/DL (0.20-1.00); Calcium 8.2 MG/DL (8.5-10.1); Osmolality,Calculated 272.8 MOS/KG (273-304); Potassium 4.3 MMOL/L (3.5-5.1); Total Protein 5.3 G/DL (6.4-8.2)
[2022-02-22] MEDS: DEXT 5% NACL 0.45% KCL 40 MEQ 40 MEQ/1,000 ML BAG IV SCH ×2 (08:03→10:27)
[2022-02-22] MEDS: POTASSIUM CHLORIDE 20 MEQ TABLET PO SCH (08:10)
[2022-02-22] MEDS: BACILLUS COAGULANS CAPLET PO SCH ×2 (08:10→21:36)
[2022-02-22] MEDS: DILTIAZEM CD 180 MG CAPSULE PO SCH ×2 (08:10→21:47)
[2022-02-22] MEDS: METOPROLOL TARTRATE 50 MG TABLET PO SCH ×2 (08:10→21:36)
[2022-02-22] MEDS: FLUCONAZOLE 100 MG TABLET PO SCH (08:11)
[2022-02-22] MEDS: PANTOPRAZOLE 40 MG VIAL IV SCH (08:11)
[2022-02-22] MEDS ORDERED: HALOPERIDOL 5 MG TABLET PO PRN (11:02)
[2022-02-22] MEDS: SIMETHICONE CHEW 125 MG TABLET PO PRN (11:07)
[2022-02-22] MEDS: INSULIN GLARGINE 100 UNIT/ML SUBCUT SCH (21:36)
[2022-02-22 21:48] VITALS: BP 144/97
[2022-02-22] MEDS: MELATONIN 3 MG TABLET PO PRN (22:18)
[2022-02-23] MEDS: ALBUTEROL/IPRATROPIUM 3 ML NEB RESP TX SCH ×3 (02:20→11:14)
[2022-02-23 04:48] LABS: INR 3.7; PT Patient Result 37.1 SECS (10.1-12.1)
[2022-02-23] MEDS: INSULIN REGULAR 100 UNIT/ML SUBCUT SCH ×3 (05:13→11:29)
[2022-02-23] MEDS: VANCOMYCIN 50 MG/ML 60 ML/BOTTLE PO SCH ×2 (05:14→11:29)
[2022-02-23 08:26] LABS: Basophils # 0.1 10*3/uL (0.0-0.2); Basophils % 1.3 % (0.0-0.8); Eosinophils # 0.3 10*3/uL (0.0-0.87); Eosinophils % 3.9 % (0.00-10.9); Hematocrit 30.9 VOL% (42.0-52.0); Hemoglobin 9.8 GM/DL (14.0-18.0); Immature Granulocytes % 5.8 %; Lymphocytes # 1.1 10*3/uL (1.4-4.0); Lymphocytes % 12.7 % (21.2-54.2); Mean Corpuscular HGB Conc 31.7 GM/DL (32-36); Mean Corpuscular Volume 97.5 FL (87-102); Mean Platelet Volume 12.4 FL (9.6-12.0); Monocytes # 0.9 10*3/uL (0.11-0.8); Monocytes % 10.2 % (1.7-12.7); Neutrophils % 66.1 % (38.7-73.9); Platelet Count 241 T/CUMM (130-400); Red Blood Count 3.17 MC/CUMM (3.8-5.5); Red Cell Distribution Width 14.8 % (9.3-17.3); White Blood Count 8.6 T/CUMM (4-12)
[2022-02-23 08:39] LABS: Albumin 2.4 G/DL (3.4-5.0); Bilirubin,Total 0.5 MG/DL (0.20-1.00); Calcium 8.2 MG/DL (8.5-10.1); Osmolality,Calculated 273.7 MOS/KG (273-304); Total Protein 5.8 G/DL (6.4-8.2)
[2022-02-23 08:45] LABS: Band Neutrophils 1 % (0-10); Eosinophils 3 % (0-10); Lymphocytes 8 % (20-55); Platelet Estimate Adequate; Total Cells Counted 100
[2022-02-23] MEDS: BACILLUS COAGULANS CAPLET PO SCH (08:57)
[2022-02-23] MEDS: PANTOPRAZOLE 40 MG VIAL IV SCH (08:57)
[2022-02-23] MEDS: POTASSIUM CHLORIDE 20 MEQ TABLET PO SCH (08:57)
[2022-02-23] MEDS: DILTIAZEM CD 180 MG CAPSULE PO SCH (08:57)
[2022-02-23] MEDS: METOPROLOL TARTRATE 50 MG TABLET PO SCH (08:57)
[2022-02-23] MEDS: SIMETHICONE CHEW 125 MG TABLET PO PRN (08:58)
[2022-02-23] MEDS ORDERED: DOCUSATE SODIUM 100 MG CAPSULE PO SCH (09:06)
[2022-02-23] MEDS ORDERED: METOPROLOL TARTRATE 50 MG TABLET PO ONE (09:48)
[2022-02-23] MEDS ORDERED: METOPROLOL TARTRATE 50 MG TABLET PO SCH (21:00)
== END 2022-02-23 14:20 | disposition swing bed (61) | DRG 637 ==
LOC: N.ED 08:22 → SUATTDRO 11:46 → N.EDINP 11:46 → N.ICU 13:49
PROVIDERS: ADMIT Internal Medicine; ATTEND Internal Medicine